=== PATIENT | male | born 2000 | race Caucasian/White ===

== ENCOUNTER 2020-10-22 14:33 | Outpatient (CLI) | payer BC ==
[2020-10-22 15:53] LABS: #Eosinphils 0.2 10x3/uL (0.0-0.5); #Monocytes 0.7 10x3/uL (0.0-1.1); #Neutrophils 5.3 10x3/uL (1.5-8.4); %Basophils 0.5 % (0.0-2.0); %Eosinophils 2.4 % (0.0-6.0); %Lymphocytes 29.8 % (18.0-47.0); %Monocytes 7.4 % (0.0-10.0); %Neutrophils 59.3 % (40.0-75.0); Hemoglobin 16.7 g/dL (13.5-17.5); Mean Corpuscular HGB CONC 35.1 g/dL (32.0-36.0); Mean Corpuscular Volume 88.3 fl (81.2-95.1); Mean Platelet Volume 11.7 fl (7.4-10.4); Platelet Count 238 10x3/uL (150-450); RBC Distribution Width 11.3 % (11.5-14.5); Red Blood Cell (RBC) Count 5.39 10x6/uL (4.32-5.72); White Blood Cell (WBC) Count 8.8 10x3/uL (3.5-10.5)
[2020-10-22 16:16] LABS: Anion Gap 15 mmol/L (10-20); BUN (Urea Nitrogen) 17 mg/dL (8.9-20.6); Calc. Creatinine Clearance 0 mL/min (70-130); Calcium 10.1 mg/dL (7.8-10.44); Carbon Dioxide 27 mmol/L (22-29); Chloride 103 mmol/L (98-107); Glucose 83 mg/dL (70-105); Potassium 4.5 mmol/L (3.5-5.1); Sodium 140 mmol/L (136-145)
[2020-10-23 00:46] LABS: SARS-CoV-2 PCR by NAA Not Detected (NotDetected)
== END 2020-10-22 14:34 | disposition home or self-care (01) ==
LOC: LABBT 14:33
PROVIDERS: ATTEND Specialist
DX: Z01.812 Encounter for preprocedural laboratory examination (principal); L05.91 Pilonidal cyst without abscess; Z20.822 Contact with and (suspected) exposure to COVID-19
CPT/HCPCS: 80048; 85025; 87635; U0003; U0005

== ENCOUNTER 2020-10-27 05:48 | Day surgery (SDC) | payer BC ==
[2020-10-25 14:35] VITALS: BMI 31.2
[2020-10-27] MEDS ORDERED: Acetaminophen 500 MG TAB ONE (06:11)
[2020-10-27] MEDS ORDERED: Ketorolac Tromethamine 30 MG/ML VIAL ONE (06:11)
[2020-10-27] MEDS ORDERED: Gabapentin 300 MG CAP ONE (06:12)
[2020-10-27] MEDS ORDERED: Meropenem 2 GM in Sodium Chloride 0.9% 100 ML IVPB SCH (06:30)
[2020-10-27] MEDS ORDERED: Methylene Blue 50 MG/10 ML AMPUL ONE (06:49)
[2020-10-27] MEDS ORDERED: Bupivacaine PF 0.5% 30 ML VIAL ONE (06:49)
[2020-10-27] MEDS ORDERED: Lidocaine 1% w/Epinephrine 1:100K 20 ML VIAL ONE (06:49)
[2020-10-27] MEDS ORDERED: Fentanyl 100 MCG/2 ML VIAL ONE ×2 (06:50→08:32)
[2020-10-27] MEDS ORDERED: Meperidine HCl/PF 25 MG/ML VIAL ONE (07:06)
[2020-10-27] MEDS ORDERED: Midazolam HCl 2 mg/2 ml Vial ONE (07:20)
[2020-10-27] MEDS ORDERED: Dexamethasone 20 MG/5 ML VIAL ONE (07:36)
[2020-10-27] MEDS ORDERED: Glycopyrrolate 0.2 MG/ML 5 ML SYRINGE ONE (07:36)
[2020-10-27] MEDS ORDERED: Lidocaine 1% PF 5 ML VIAL ONE (07:36)
[2020-10-27] MEDS ORDERED: PROPOFOL 200 MG/20 ML VIAL ONE (07:36)
[2020-10-27] MEDS ORDERED: Ondansetron PF 4 MG/2 ML Vial ONE (07:36)
[2020-10-27] MEDS ORDERED: Rocuronium Bromide 10 MG/ML (10ML VIAL) ONE (07:36)
[2020-10-27] MEDS ORDERED: PROPOFOL 20 ML ONE (08:32)
== END 2020-10-27 12:00 | disposition home or self-care (01) ==
LOC: SDC 05:48
PROVIDERS: ATTEND Specialist
PROC: 0JB90ZZ Excision of Buttock Subcutaneous Tissue and Fascia, Open Approach (ICD-10-PCS; principal; 2020-10-27)
DX: L05.01 Pilonidal cyst with abscess (principal); L05.02 Pilonidal sinus with abscess; Z87.891 Personal history of nicotine dependence
CPT/HCPCS: 88304; J1100; J1885; J2175; J2185; J2250; J2405; J2704; J3010; J3490; Q9968; S0020